=== PATIENT | female | born 1980 | race Caucasian/White ===

== ENCOUNTER 2019-07-27 16:49 | Inpatient (IN) | payer OTHER ==
[~2019-07-27] VITALS: Ht 170.2 cm; Wt 69.5 kg
[2019-07-27] MEDS ORDERED: ALPR0.5T8 PO (17:02)
[2019-07-27] MEDS ORDERED: GABA-529 PO (17:02)
[2019-07-27 17:19] LABS: ABG A-A DIFF O2 45.9 mmHg (10-20.0); ABG BASE EXCESS -3.7 mmol/L (-2.0-3.0); ABG HCO3 21.8 mmol/L (22.0-26.0); ABG METHEMOGLOBIN 0.3 % (0.0-1.5); ABG OXYGEN CONTENT 17.5 mL/dL (15.0-23.0); ABG OXYGEN SATURATION 97.9 % (95.0-98.0); ABG OXYHEMOGLOBIN 94.7 % (94.0-100.0); ABG PCO2 37 mmHg (35-45); ABG PH 7.378 (7.350-7.450); PO2, ARTERIAL BG 110.1 mmHg (92.0-100.0); SOURCE, BLOOD GAS ARTERIAL; TEMPERATURE, FAHRENHEIT, BG 97.5 FAHREN (96.0-98.6)
[2019-07-27 17:22] LABS: O2 DEVICE,BLOOD GAS CANNULA (ROOM AIR); SITE, BLOOD GAS LFT RADIAL
[2019-07-27] MEDS ORDERED: SODIUM CHLORIDE 0.9% 1,000 ML IV ONE ×2 (17:30→18:15)
[2019-07-27 17:33] LABS: BASOPHILS % (AUTO) 0.2 % (0.0-2.0); EOSINOPHILS % (AUTO) 0 % (1.0-6.0); HEMATOCRIT 36.7 % (36-46); HEMOGLOBIN 12.7 g/dL (12.0-16.0); LYMPHOCYTES # (AUTO) 2.1 K/uL (1.0-4.8); LYMPHOCYTES % (AUTO) 29.4 % (22.0-44.0); MEAN CORPUSCULAR HEMOGLOBIN 30.3 pg (26.0-34.0); MEAN CORPUSCULAR HGB CONC 34.5 G/dL (31.0-37.0); MEAN CORPUSCULAR VOLUME 88 fL (80-100); MONOCYTES # (AUTO) 0.5 K/uL (0.1-1.0); MONOCYTES % (AUTO) 7.2 % (2.0-9.0); NEUTROPHILS # (AUTO) 4.5 K/uL (1.8-7.7); NEUTROPHILS % (AUTO) 63.2 % (40.0-70.0); PLATELET COUNT (AUTO) 301 K/uL (150-450); RED BLOOD CELL COUNT(AUTO) 4.17 MIL/uL (4.00-5.20); RED CELL DISTRIBUTION WIDTH 12.7 % (11.5-14.5)
[2019-07-27 17:37] LABS: SALICYLATE 3.4 mg/dL (2.8-20.0)
[2019-07-27 17:41] LABS: APPEARANCE,URINE CLEAR (CLEAR); BILIRUBIN,URINE NEGATIVE (NEGATIVE); GLUCOSE, URINE (UA) NEGATIVE (NEGATIVE); KETONES,URINE TRACE mg/dL (NEGATIVE); LEUKOCYTE ESTERASE ,URINE NEGATIVE (NEGATIVE); NITRATE,URINE NEGATIVE (NEGATIVE); OCCULT BLOOD,URINE TRACE (NEGATIVE); PROTEIN,URINE NEGATIVE (NEGATIVE); UROBILINOGEN,URINE 0.2 mg/dL (<=1.0)
[2019-07-27 17:43] LABS: AMPHET/METH SCREEN,URINE NEGATIVE (NEGATIVE); BARBITURATE SCREEN, URINE NEGATIVE (NEGATIVE); BENZODIAZEPINES SCREEN,URINE POSITIVE (NEGATIVE); CANNABINOID SCREEN,URINE POSITIVE (NEGATIVE); COCAINE SCREEN,URINE NEGATIVE (NEGATIVE); METHADONE SCREEN, URINE NEGATIVE (NEGATIVE); OPIATE SCREEN,URINE NEGATIVE (NEGATIVE)
[2019-07-27 17:43] LABS: ANION GAP 12 mmol/L (8-16); CALCIUM, TOTAL 8.5 mg/dL (8.8-10.5); CARBON DIOXIDE 24 mmol/L (22-29); CHLORIDE 105 mmol/L (98-107); CREATININE 0.67 mg/dL (0.60-1.30); GLOMERULAR FILTR. RATE CALC > 60 mL/min (>60); GLUCOSE,RANDOM 92 mg/dL (70-110); POTASSIUM 3.2 mmol/L (3.5-5.1); SODIUM SERUM 141 mmol/L (136-145); UREA NITROGEN, BLOOD 6 mg/dL (7-18)
[2019-07-27 17:45] LABS: PHENCYCLIDINE SCREEN,URINE NEGATIVE (NEGATIVE)
[2019-07-27 17:46] LABS: AMMONIA 14 umol/L (11-32)
[2019-07-27 17:47] LABS: TROPONIN I < 0.02 ng/mL (0.00-0.05)
[2019-07-27 17:57] LABS: BACTERIA,URINE None Seen /HPF (None Seen); RBC,URINE 0-2 /HPF (0-2); SQUAMOUS EPITHELIAL CELL,UR Rare /LPF (None Seen); WBC,URINE 0-2 /HPF (0-5)
[2019-07-27 17:59] LABS: LACTIC ACID 1.4 mmol/L (0.4-2.0)
[2019-07-27 18:05] LABS: ALANINE AMINOTRANSFERASE 23 U/L (12-78); ALBUMIN 3.3 g/dL (3.4-5.0); ALKALINE PHOSPHATASE 56 U/L (46-116); ASPARTATE AMINOTRANSFERASE 24 U/L (15-37); BILIRUBIN,TOTAL 0.4 mg/dL (0.1-1.0); CREATINE KINASE, TOTAL ONLY 152 U/L (26-192); TOTAL PROTEIN, SERUM 6.5 g/dL (6.4-8.2)
[2019-07-27] MEDS: POTASSIUM CHL 10 MEQ/WATER 50 ML IV SCH ×2 (18:06→18:56)
[2019-07-27 18:23] LABS: HCG,QUANTITATIVE < 1 mIU/mL (0-6)
[2019-07-27 18:25] LABS: ACETAMINOPHEN < 2 mcg/mL (10-30)
[2019-07-27] MEDS ORDERED: 0.9% SODIUM CHLORIDE 10 ML SYRINGE IVP PRN (20:30)
[2019-07-27] MEDS ORDERED: ACETAMINOPHEN 325 MG TABLET PO PRN (20:30)
[2019-07-27] MEDS ORDERED: ONDANSETRON HCL 4 MG/2 ML VIAL IVP PRN ×2 (20:30→21:45)
[2019-07-27] MEDS ORDERED: ZOLPIDEM TARTRATE 5 MG TABLET PO PRN (21:45)
[2019-07-27] MEDS ORDERED: MAGNESIUM HYDROXIDE SUSPENSION 30 ML UDCUP PO PRN (21:45)
[2019-07-27] MEDS ORDERED: BISACODYL 10 MG RECTAL RECTAL SUPPOSITORY PR PRN (21:45)
[2019-07-27] MEDS ORDERED: MAGNESIUM SULFATE 2 GM, MVI, ADULT NO.1 WITH VIT K 10 ML, THIAMINE HCL 100 MG, FOLIC AC... IV ONE ×5 (21:45)
[2019-07-28] VITALS: BP 99/62
[2019-07-28] MEDS: HEPARIN SODIUM,PORCINE 5,000 UNITS/ML VIAL SQ SCH ×3 (01:47→17:14)
[2019-07-28 04:00] VITALS: BP 107/73
[2019-07-28 05:38] LABS: ALANINE AMINOTRANSFERASE 19 U/L (12-78); ALBUMIN 2.8 g/dL (3.4-5.0); ALKALINE PHOSPHATASE 56 U/L (46-116); ANION GAP 9 mmol/L (8-16); ASPARTATE AMINOTRANSFERASE 23 U/L (15-37); BILIRUBIN,TOTAL 0.4 mg/dL (0.1-1.0); CALCIUM, TOTAL 8.1 mg/dL (8.8-10.5); CARBON DIOXIDE 23 mmol/L (22-29); CHLORIDE 111 mmol/L (98-107); CREATININE 0.59 mg/dL (0.60-1.30); GLOMERULAR FILTR. RATE CALC > 60 mL/min (>60); GLUCOSE,RANDOM 81 mg/dL (70-110); POTASSIUM 4.3 mmol/L (3.5-5.1); SODIUM SERUM 143 mmol/L (136-145); TOTAL PROTEIN, SERUM 5.9 g/dL (6.4-8.2); UREA NITROGEN, BLOOD 5 mg/dL (7-18)
[2019-07-28 07:18] LABS: BASOPHILS % (AUTO) 0.2 % (0.0-2.0); EOSINOPHILS % (AUTO) 0 % (1.0-6.0); HEMATOCRIT 39.7 % (36-46); HEMOGLOBIN 13.7 g/dL (12.0-16.0); LYMPHOCYTES # (AUTO) 1.9 K/uL (1.0-4.8); LYMPHOCYTES % (AUTO) 34.2 % (22.0-44.0); MEAN CORPUSCULAR HEMOGLOBIN 30.3 pg (26.0-34.0); MEAN CORPUSCULAR HGB CONC 34.4 G/dL (31.0-37.0); MEAN CORPUSCULAR VOLUME 88 fL (80-100); MONOCYTES # (AUTO) 0.4 K/uL (0.1-1.0); MONOCYTES % (AUTO) 7.9 % (2.0-9.0); NEUTROPHILS # (AUTO) 3.2 K/uL (1.8-7.7); NEUTROPHILS % (AUTO) 57.7 % (40.0-70.0); PLATELET COUNT (AUTO) 256 K/uL (150-450); RED BLOOD CELL COUNT(AUTO) 4.51 MIL/uL (4.00-5.20); RED CELL DISTRIBUTION WIDTH 12.7 % (11.5-14.5)
[2019-07-28] MEDS: PANTOPRAZOLE SODIUM 40 MG DR TABLET PO SCH (08:23)
[2019-07-28] MEDS: DOCUSATE SODIUM 100 MG CAPSULE PO SCH ×2 (08:23→20:56)
[2019-07-28 09:36] VITALS: BP 116/56
[2019-07-28 11:18] VITALS: BP 106/60
[2019-07-28 16:20] VITALS: BP 114/64
[2019-07-28 20:00] VITALS: BP 118/78
[2019-07-28] MEDS: MORPHINE SULFATE 2 MG/ML SYRINGE IVP PRN (20:56)
[2019-07-29 00:11] VITALS: BP 115/83
[2019-07-29] MEDS ORDERED: LORazepam 2 MG/ML VIAL IM PRN (00:15)
[2019-07-29] MEDS ORDERED: DiphenhydrAMINE HCL 25 MG CAPSULE PO ONE (00:30)
[2019-07-29] MEDS: HEPARIN SODIUM,PORCINE 5,000 UNITS/ML VIAL SQ SCH ×3 (00:33→16:48)
[2019-07-29 04:02] VITALS: BP 110/78
[2019-07-29] MEDS ORDERED: OxyCODONE HCL/ACETAMINOPHEN 5-325 MG TABLET PO PRN (06:15)
[2019-07-29 07:47] LABS: BASOPHILS % (AUTO) 0.2 % (0.0-2.0); EOSINOPHILS % (AUTO) 0 % (1.0-6.0); HEMATOCRIT 36.9 % (36-46); LYMPHOCYTES # (AUTO) 2.1 K/uL (1.0-4.8); LYMPHOCYTES % (AUTO) 40.1 % (22.0-44.0); MEAN CORPUSCULAR HEMOGLOBIN 30.3 pg (26.0-34.0); MEAN CORPUSCULAR HGB CONC 35.2 G/dL (31.0-37.0); MEAN CORPUSCULAR VOLUME 86 fL (80-100); MONOCYTES # (AUTO) 0.4 K/uL (0.1-1.0); MONOCYTES % (AUTO) 6.7 % (2.0-9.0); NEUTROPHILS # (AUTO) 2.8 K/uL (1.8-7.7); PLATELET COUNT (AUTO) 270 K/uL (150-450); RED BLOOD CELL COUNT(AUTO) 4.29 MIL/uL (4.00-5.20); RED CELL DISTRIBUTION WIDTH 12.6 % (11.5-14.5)
[2019-07-29 08:14] LABS: ANION GAP 8 mmol/L (8-16); CALCIUM, TOTAL 8.3 mg/dL (8.8-10.5); CARBON DIOXIDE 25 mmol/L (22-29); CHLORIDE 108 mmol/L (98-107); CREATININE 0.69 mg/dL (0.60-1.30); GLOMERULAR FILTR. RATE CALC > 60 mL/min (>60); GLUCOSE,RANDOM 82 mg/dL (70-110); POTASSIUM 3.7 mmol/L (3.5-5.1); SODIUM SERUM 141 mmol/L (136-145); UREA NITROGEN, BLOOD 6 mg/dL (7-18)
[2019-07-29 08:19] VITALS: BP 119/54
[2019-07-29] MEDS: PANTOPRAZOLE SODIUM 40 MG DR TABLET PO SCH (08:26)
[2019-07-29] MEDS: DOCUSATE SODIUM 100 MG CAPSULE PO SCH (08:36)
[2019-07-29] MEDS ORDERED: SERTRALINE HCL 50 MG TABLET PO SCH (09:00)
[2019-07-29 13:00] VITALS: BP 121/71
[2019-07-29 15:57] VITALS: BP 109/52
[2019-07-29] MEDS: MORPHINE SULFATE 2 MG/ML SYRINGE IVP PRN (16:48)
== END 2019-07-29 18:00 | DRG 917 ==
LOC: EMS 16:50 → EDBD 16:50 → 6N 21:50 → ICU 21:55 → 6N 07-28 10:34
PROVIDERS: ADMIT Internal Medicine; ATTEND Internal Medicine
DX: T42.4X2A Poisoning by benzodiazepines, intentional self-harm, initial encounter (principal); G92 Toxic encephalopathy; R45.851 Suicidal ideations; F33.2 Major depressive disorder, recurrent severe without psychotic features; F12.10 Cannabis abuse, uncomplicated; F41.1 Generalized anxiety disorder; Y92.89 Other specified places as the place of occurrence of the external cause; Z59.0 Homelessness
CPT/HCPCS: 36600; 51702; 82805; 83605; 87081; 93005; 99291; G0378; G0480; G0481; J1644; J2060; J2270; J3411; J3475; J3480; J3490; J7030

== ENCOUNTER 2019-07-29 18:58 | Inpatient (IN) | payer OTHER ==
[~2019-07-29] VITALS: Ht 157.5 cm; Wt 70.0 kg
[~2019-07-29 18:58] MED LIST: ALPR0.5T8 PO; GABA-529 PO
[2019-07-29] MEDS: HALOPERIDOL 5 MG TABLET PO PRN (20:07)
[2019-07-29] MEDS: ZOLPIDEM TARTRATE 10 MG TABLET PO PRN (20:07)
[2019-07-29] MEDS: HydrOXYzine PAMOATE 50 MG CAPSULE PO PRN (20:07)
[2019-07-29 22:56] VITALS: BP 127/95
[2019-07-30] MEDS: SERTRALINE HCL 50 MG TABLET PO SCH (08:14)
[2019-07-30] MEDS: HALOPERIDOL 5 MG TABLET PO PRN (08:15)
[2019-07-30 10:42] VITALS: BP 142/91
[2019-07-30] MEDS: HydrOXYzine PAMOATE 50 MG CAPSULE PO PRN ×2 (12:14→20:25)
[2019-07-30] MEDS ORDERED: NICOTINE 14 MG/24 HOUR PATCH TD PRN (15:00)
[2019-07-30] MEDS ORDERED: LOPERAMIDE HCL 2 MG CAPSULE PO PRN (15:00)
[2019-07-30] MEDS ORDERED: GuaiFENesin/D-METHORPHAN [SUGAR-FREE] 200-20MG/10 ML SYRUP UDCUP PO PRN (15:00)
[2019-07-30] MEDS ORDERED: MAGNESIUM HYDROXIDE SUSPENSION 30 ML UDCUP PO PRN (15:00)
[2019-07-30] MEDS ORDERED: PETROLATUM,WHITE 28 GM JELLY TP PRN (15:00)
[2019-07-30] MEDS ORDERED: ONDANSETRON HCL 4 MG TABLET PO PRN (15:00)
[2019-07-30] MEDS ORDERED: MAG HYDROX/AL HYDROX/SIMETH ES 30 ML SUSPENSION UDCUP PO PRN (15:00)
[2019-07-30] MEDS ORDERED: CloNIDine HCL 0.1 MG TABLET PO PRN (15:00)
[2019-07-30] MEDS ORDERED: DOCUSATE SODIUM 100 MG CAPSULE PO PRN (15:00)
[2019-07-30] MEDS ORDERED: ALBUTEROL SULFATE HFA 90 MCG/PUFF 8 GM INHALER IH PRN (15:00)
[2019-07-30] MEDS ORDERED: IBUPROFEN 400 MG TABLET PO PRN (15:00)
[2019-07-30 16:30] VITALS: BP 136/80
[2019-07-31] MEDS: SERTRALINE HCL 50 MG TABLET PO SCH (09:09)
[2019-07-31 13:36] VITALS: BP 124/68
[2019-07-31] MEDS: HydrOXYzine PAMOATE 50 MG CAPSULE PO PRN (14:29)
[2019-07-31 18:09] VITALS: BP 127/73
[2019-08-01 03:16] VITALS: BP 117/87
[2019-08-01] MEDS: ACETAMINOPHEN 325 MG TABLET PO PRN (03:22)
[2019-08-01 08:37] VITALS: BP 128/94
[2019-08-01] MEDS: SERTRALINE HCL 50 MG TABLET PO SCH (10:31)
[2019-08-01] MEDS: ESOMEPRAZOLE MAG TRIHYDRATE 20 MG CAPSULE PO SCH (17:00)
[2019-08-01] MEDS: ZOLPIDEM TARTRATE 10 MG TABLET PO PRN (21:07)
[2019-08-01 21:56] VITALS: BP 124/80
[2019-08-02 04:40] VITALS: BP 122/72
[2019-08-02] MEDS: SERTRALINE HCL 50 MG TABLET PO SCH (08:53)
[2019-08-02] MEDS: ESOMEPRAZOLE MAG TRIHYDRATE 20 MG CAPSULE PO SCH (08:54)
[2019-08-02 09:27] VITALS: BP 123/73
[2019-08-02] MEDS: ACETAMINOPHEN 325 MG TABLET PO PRN ×2 (09:27→17:28)
[2019-08-02 10:02] VITALS: BP 124/74
[2019-08-02 17:20] VITALS: BP 117/90
[2019-08-02] MEDS: HydrOXYzine PAMOATE 50 MG CAPSULE PO PRN (19:15)
[2019-08-02] MEDS: ZOLPIDEM TARTRATE 10 MG TABLET PO PRN (21:11)
[2019-08-03 08:30] VITALS: BP 125/80
[2019-08-03] MEDS: ESOMEPRAZOLE MAG TRIHYDRATE 20 MG CAPSULE PO SCH (09:57)
[2019-08-03] MEDS: SERTRALINE HCL 50 MG TABLET PO SCH (09:57)
[2019-08-03] MEDS: ACETAMINOPHEN 325 MG TABLET PO PRN (13:15)
[2019-08-03] MEDS: HydrOXYzine PAMOATE 50 MG CAPSULE PO PRN (17:52)
[2019-08-03 19:19] VITALS: BP 122/84
[2019-08-03] MEDS: ZOLPIDEM TARTRATE 10 MG TABLET PO PRN (20:12)
[2019-08-04 02:19] VITALS: BP 118/80
[2019-08-04] MEDS: ACETAMINOPHEN 325 MG TABLET PO PRN (02:19)
[2019-08-04] MEDS: HydrOXYzine PAMOATE 50 MG CAPSULE PO PRN ×3 (02:19→16:41)
[2019-08-04 08:20] VITALS: BP 108/77
[2019-08-04] MEDS: ESOMEPRAZOLE MAG TRIHYDRATE 20 MG CAPSULE PO SCH (09:11)
[2019-08-04] MEDS: SERTRALINE HCL 50 MG TABLET PO SCH (09:12)
[2019-08-04] MEDS: HALOPERIDOL 5 MG TABLET PO PRN (12:35)
[2019-08-04 18:37] VITALS: BP 105/60
[2019-08-04] MEDS: ZOLPIDEM TARTRATE 10 MG TABLET PO PRN (21:14)
[2019-08-05 08:30] VITALS: BP 122/77
[2019-08-05] MEDS: SERTRALINE HCL 50 MG TABLET PO SCH (08:36)
[2019-08-05] MEDS: ESOMEPRAZOLE MAG TRIHYDRATE 20 MG CAPSULE PO SCH (08:36)
[2019-08-05] MEDS: HydrOXYzine PAMOATE 50 MG CAPSULE PO PRN ×3 (12:43→18:27)
[2019-08-05 17:00] VITALS: BP 119/85
[2019-08-05] MEDS: HALOPERIDOL 5 MG TABLET PO PRN (18:27)
[2019-08-05] MEDS: ZOLPIDEM TARTRATE 10 MG TABLET PO PRN (20:20)
[2019-08-06 08:28] VITALS: BP 124/77
[2019-08-06] MEDS: ESOMEPRAZOLE MAG TRIHYDRATE 20 MG CAPSULE PO SCH (08:44)
[2019-08-06] MEDS: SERTRALINE HCL 50 MG TABLET PO SCH (08:44)
[2019-08-06] MEDS ORDERED: SERT50TA12 PO (12:49)
[2019-08-06] MEDS ORDERED: ESOM20CA31 PO (12:53)
== END 2019-08-06 14:35 | disposition home or self-care (01) | DRG 885 ==
LOC: 3EI 18:58
DX: F33.2 Major depressive disorder, recurrent severe without psychotic features (principal); G92 Toxic encephalopathy; F41.1 Generalized anxiety disorder; K21.9 Gastro-esophageal reflux disease without esophagitis; F19.10 Other psychoactive substance abuse, uncomplicated; F12.10 Cannabis abuse, uncomplicated; T42.4X2A Poisoning by benzodiazepines, intentional self-harm, initial encounter; Z56.0 Unemployment, unspecified; Z59.0 Homelessness; Z91.5 Personal history of self-harm; Z71.51 Drug abuse counseling and surveillance of drug abuser; Y92.89 Other specified places as the place of occurrence of the external cause
CPT/HCPCS: 84132; 87081